=== PATIENT | female | born 1970 | race Caucasian/White ===

== ENCOUNTER 2020-05-14 13:30 | Outpatient (CLI) | payer SELFPAY ==
[~2020-05-14] VITALS: Ht 160 cm; Wt 64.5 kg
[2020-05-14] MEDS ORDERED: CETI10TA17 PO (14:02)
== END 2020-05-14 14:06 | disposition home or self-care (01) ==
LOC: PREOP 13:30
PROVIDERS: ATTEND Surgery
DX: Z01.818 Encounter for other preprocedural examination (principal)

== ENCOUNTER 2020-05-16 09:44 | Day surgery (SDC) | payer SELFPAY ==
[2020-05-16] VITALS (11 sets, daily range): BP systolic 107–131; BP diastolic 62–98
[~2020-05-16] VITALS: Ht 160 cm; Wt 64.5 kg
[~2020-05-16 09:44] MED LIST: CETI10TA17 PO
[2020-05-16] MEDS ORDERED: ceFAZolin 2 GM IV Premixed 50 ML IV ONE (10:00)
[2020-05-16] MEDS: LACTATED RINGERS 1,000 ML IV PRN ×2 (10:07→12:09)
--- NOTE | 2020-05-16 10:07 | Progress Note-Pre Operative ---
Pre-Operative Progress Note H&P Reviewed The H&P was reviewed, patient examined and no changes noted. Date Seen by Provider: May 16, 2020 Time Seen by Provider: 10:00 Date H&P Reviewed: May 16, 2020 Time H&P Reviewed: 09:55 Pre-Operative Diagnosis: Symptomatic skin lesion right adventism SHIRA VITALE APRN May 16, 2020 10:07
--- NOTE | 2020-05-16 10:07 | Progress Note-Pre Operative ---
Pre-Operative Progress Note H&P Reviewed The H&P was reviewed, patient examined and no changes noted. Date Seen by Provider: May 16, 2020 Time Seen by Provider: 10:00 Date H&P Reviewed: May 16, 2020 Time H&P Reviewed: 10:00 Pre-Operative Diagnosis: sx skin lesion right christianity(4cm) LINDEN HI MD May 16, 2020 10:07
[2020-05-16] MEDS ORDERED: ONDANSETRON 4 MG/2 ML (SDV) Z0FRAN IVP PRN ×3 (10:15→13:15)
[2020-05-16] MEDS ORDERED: ACETAMINOPHEN 325 MG TABLET PO PRN ×2 (10:15)
[2020-05-16] MEDS ORDERED: oxyCODONE/APAP 5/325MG (PERCOCET 5) TABLET PO PRN (10:15)
[2020-05-16] MEDS ORDERED: morphine INJ 10 MG/ML 1ML (SYR OR VIAL) IVP PRN ×2 (10:15)
[2020-05-16] MEDS ORDERED: fentaNYL INJECTION 100 MCG/2 ML AMP IVP PRN (10:15)
[2020-05-16] MEDS ORDERED: TRM50T PO (10:18)
--- NOTE | 2020-05-16 10:19 | Discharge Inst-Surgical ---
D/C Lap Instructions-KIDO Reconcile Patient Problems Problems Reviewed?: Yes New, Converted, or Re-Newed RX: RX on Chart Follow Up Appt in 2 weeks Activity as tolerated No driving for 24 hours No driving while on pain medications Incentive Spirometry use every 2 hours while awake Regular Diet Symptoms to Report: Fever over 101 degree F, Nausea/Vomiting Infection Signs and Symptoms to report: Increased redness, Foul odor of wound, Increased drainage Bathing instructions: May shower Operative Area Clean/Dry; Keep incision clean/dry If any problems/questions: Contact your physician or go to Emergency Room SHIRA VITALE APRN May 16, 2020 10:19
[2020-05-16] MEDS ORDERED: LIDOCAINE PF 2% 5 ML (XYLOCAINE) VIAL ONE (11:14)
[2020-05-16] MEDS ORDERED: proPOfol 200 MG/20 ML (DIPRIVAN) VIAL IV ONE (11:14)
[2020-05-16] MEDS ORDERED: SEVOFLURANE (ULTANE) 15 ML INHAL SOLN ONE ×3 (11:14→12:39)
[2020-05-16] MEDS ORDERED: BUP/EPI 0.25% 1:200,000 (MARCAINE) 30 ML VIAL ONE (11:15)
[2020-05-16] MEDS ORDERED: fentaNYL INJECTION 100 MCG/2 ML AMP ONE (11:15)
[2020-05-16] MEDS ORDERED: MIDAZOLAM 2 MG/2 ML (VERSED) VIAL ONE (11:15)
[2020-05-16] MEDS ORDERED: PHENYLEPHRINE 100 MCG/ML 10 ML (ANESTHESIA) SYR ONE (12:20)
[2020-05-16] MEDS ORDERED: NEO/POLY/BAC (NEOSPORIN) OINT 15 GM TUBE ONE (12:39)
--- NOTE | 2020-05-16 12:43 | Progress Note-Post Operative ---
Post-Operative Progess Note Surgeon (s)/Pot Operator (s) Surgeon LINDEN HI MD Pot Operator: roger bañuelos Pre-Operative Diagnosis sx skin lesion right taoist(4cm) Post-Operative Diagnosis same with excised diameter 5x5cm Procedure & Operative Findings Date of Procedure 05/16/20 Procedure Performed/Findings excision malignant skin lesion right taoist(5cm) with full thickness skin graft from right neck with intermediate flap closure. Anesthesia Type general LMA Estimated Blood Loss Estimated blood loss (mL): minimal Specimens/Packing Specimens Removed right taoist skin lesion LINDEN HI MD May 16, 2020 12:43
[2020-05-16] MEDS ORDERED: morphine INJ 10 MG/ML 1ML (SYR OR VIAL) ONE (13:04)
[2020-05-16] MEDS ORDERED: morphine INJ 10 MG/ML 1ML (SYR OR VIAL) IVP ONE (13:15)
--- NOTE | 2020-05-16 13:37 | Anesthesia-General Post-Op ---
General Patient Condition Mental Status/LOC: Same as Preop Cardiovascular: Satisfactory Nausea/Vomiting: Absent Respiratory: Satisfactory Pain: Controlled Complications: Absent Post Op Complications Complications None Follow Up Care/Instructions Patient Instructions None needed. Anesthesia/Patient Condition Patient Condition Patient is doing well, no complaints, stable vital signs, no apparent adverse anesthesia problems. PASCUAL THAO DO May 16, 2020 13:37
--- NOTE | 2020-05-16 21:53 | OPERATIVE REPORT ---
DATE OF SERVICE: 05/16/2020 ATTENDING STEAM FLATTENER: [facility]. PREOPERATIVE DIAGNOSIS: Malignant skin lesion, right druze 4 x 4 cm in size. POSTOPERATIVE DIAGNOSIS: Malignant skin lesion, right druze 4 x 4 cm in size. PROCEDURE: Excision of malignant skin lesion, right druze with the excised diameter approximately 5 x 5 cm in size and full thickness skin graft taken from the base of the right neck with intermediate flap closure. SURGEON: Linden Hi MD PERFORMANCE TEST ARCHITECT: Jose Roberto Kenney APRN. ANESTHESIA: General laryngeal mask airway with local. ESTIMATED BLOOD LOSS: Minimal. FINDINGS: Same as postoperative diagnosis. DISPOSITION: The patient tolerated the procedure well. INDICATIONS: The patient is a 50-year-old female who was initially seen in the office for skin lesions of the nose, which had been there for a year and would become hyperkeratotic and bleed and also persisted. 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 She also had a large exophytic lesion of the right druze, which has been there for approximately 8 years. She reports that this has grown significantly larger in size over time. She states that she held off on excision due to a lack of insurance as well as other financial reasons. The lesion measured out 4 x 4 cm in size. DESCRIPTION OF PROCEDURE: The patient was brought to the operating room, laid supine on the table. After adequate IV pain and sedative medications and general laryngeal mask airway intubation, the head and neck were prepped and draped in standard surgical fashion. A 0.5% Marcaine with epinephrine was used to anesthetize overlying skin along the right druze lesion as well as the base of the neck. The skin lesion was measured out to be 4 x 4 cm in size, diameter 5 x 5 cm. The lesion of the druze was then excised full thickness to the aponeurosis of the scalp using a 15 blade as well as electrocautery with visualization of good hemostasis. We then proceeded with harvesting of the skin graft taken from the base of the right neck using a 15 blade full thickness skin. We then proceeded with closure of the defect without tension by forming superior and inferior skin flaps overlying the platysma muscle using electrocautery as well as blunt dissection. The subcutaneous tissue was then reapproximated using 3-0 Vicryl interrupted sutures and the skin was closed using 4-0 Monocryl running subcuticular suture. We then proceeded with placement suturing of the full thickness skin graft to the right druze defect using interrupted 0 Prolene sutures. Good hemostasis was observed. The neck incision site was covered with Dermabond and the druze lesion was covered with triple antibiotic ointment followed by a nonstick dressing followed by 4 x 4 gauze followed by a wrap. The patient tolerated the procedure well. We will instruct her to keep both areas clean and dry and to apply the bacitracin ointment on a daily basis in the temporal region and we will have her follow up on a weekly basis for suture removal. Job ID: [id number] DocumentID: [id number] Dictated Date: 05/16/2020 12:52:10 [employer] Supervisor Date: 05/16/2020 21:52:43 Dictated By: LINDEN HI MD
== END 2020-05-16 15:05 | disposition home or self-care (01) ==
LOC: SDC 09:44
PROVIDERS: ATTEND Surgery
DX: C44.319 Basal cell carcinoma of skin of other parts of face (principal); F17.210 Nicotine dependence, cigarettes, uncomplicated; Z88.5 Allergy status to narcotic agent; Z80.1 Family history of malignant neoplasm of trachea, bronchus and lung
CPT/HCPCS: 84703; 87081; 88305